=== PATIENT | male | born 1955 | race Caucasian/White ===

== ENCOUNTER 2018-09-11 08:40 | Inpatient (IN) | payer OTHER ==
[~2018-09-11] VITALS: Ht 177.8 cm; Wt 97.1 kg
[~2018-09-11 08:40] MED LIST: ALLOPURINOL 30300 M2 PO; ALLOPURINOL 30300 M3; ARMOUR THYROID60 M1 PO; CIPRO500 MG PO; GEMFIBROZIL 60600 M1 PO; GEMFIBROZIL 60600 MG PO; HYDROCODONE-AP1 EAC6 PO; HYOSCYAMINE0.125 MG PO; LEVOTHYROXINE 0.1 MG PO; MIRALAX17 GM PO; NORVASC 5 MG TAB5 MG PO; PHENAZOPYRIDIN200 M2 PO
[2018-09-11 08:46] VITALS: BP 135/72
[2018-09-11] MEDS ORDERED: COZAAR 25 MG TA25 M1 PO (08:49)
[2018-09-11 09:11] LABS: ABSOLUTE BASOPHILS 0.1 thou/uL (0.0-0.2); ABSOLUTE LYMPHOCYTES 1.6 thou/uL (0.8-5.3); ABSOLUTE MONOCYTES 1.1 thou/uL (0.0-1.2); ABSOLUTE NEUTROPHILS 12.9 thou/uL (1.6-8.1); BASOPHILS 0.5 %; EOSINOPHILS 0.3 %; HEMATOCRIT 41.1 % (42.0-52.0); HEMOGLOBIN 14.5 gm/dL (14.0-18.0); MCH 31.7 pg (26.0-34.0); MCHC 35.2 g/dL (28.0-37.0); MCV 90.2 fL (80.0-100.0); MONOCYTES 6.9 %; MPV 8.4 fl. (7.2-11.1); NUCLEATED RBCS 0 /100WBC; PLATELET COUNT* 207 thou/uL (150-400); POLYS 82.3 %; RBC 4.56 mil/uL (4.50-6.00); WBC 15.7 thou/uL (4.0-11.0)
[2018-09-11 09:23] LABS: ANION GAP 13 mmol/L (7-16); BUN 22 mg/dL (7-18); CALCIUM 9.9 mg/dL (8.5-10.1); CHLORIDE 101 mmol/L (98-107); CO2 25 mmol/L (21-32); CREATININE 1.3 mg/dL (0.6-1.3); GLUCOSE 120 mg/dL (70-99); POTASSIUM 3.5 mmol/L (3.5-5.1); SODIUM 139 mmol/L (136-145)
[2018-09-11 09:37] LABS: INFLUENZA A ANTIGEN None Detected (None Detect); INFLUENZA B ANTIGEN None Detected (None Detect)
[2018-09-11 09:40] LABS: ALKALINE PHOSPHATASE 74 U/L (46-116); LIPASE 64 U/L (73-393); NT-PRO BRAIN NAT PEPTIDE 80 pg/mL (<300); SGOT 21 U/L (15-37); SGPT 30 U/L (30-65); TOTAL BILIRUBIN 1.9 mg/dL (<0.1-1.0); TOTAL PROTEIN 8.1 g/dL (6.4-8.2); TROPONIN-I LEVEL <0.06 ng/mL (<0.06)
[2018-09-11 12:05] VITALS: BP 120/73
--- NOTE | 2018-09-11 14:53 | EKG ---
[place] [address] ELECTROCARDIOGRAM REPORT Name: GIOVANA MCAMHON Room: [address] ADM IN M.R.#: [id number] Admission: 09/11/18 Attend Phys: Dg Rice MD Discharge: Date of : 53 Report #: [id number] THIS REPORT FOR: //name// [facility] ED Test Date: 2018-09-11 Test Time: 09:04:32 Pat Name: GIOVANA MCMAHON Department: Room: [facility] Gender: M Sales Consultant Insurance: : [id number] Requested By: Chi Murcia Order Number: [id number] MD: Evan John Measurements Intervals Qulin Rate: 91 P: 33 IL: 148 QRS: 10 QRSD: 99 T: 15 QT: 365 QTc: 450 Interpretive Statements Sinus rhythm Borderline T wave abnormalities No previous ECG available for comparison Electronically Signed On 09-11-2018 14:53:36 CDT by Evan John [email or web address] <ELECTRONICALLY SIGNED> By: Evan John MD, [facility] 09/11/18 1453 0904 3 Evan John MD, FACC /EPI
[2018-09-11 20:00] VITALS: BP 131/70
[2018-09-12 03:53] LABS: ABSOLUTE LYMPHOCYTES 0.8 thou/uL (0.8-5.3); ABSOLUTE MONOCYTES 0.7 thou/uL (0.0-1.2); ABSOLUTE NEUTROPHILS 12.9 thou/uL (1.6-8.1); BASOPHILS 0.1 %; EOSINOPHILS 0.1 %; HEMATOCRIT 38.5 % (42.0-52.0); LYMPHOCYTES 5.6 %; MCH 30.7 pg (26.0-34.0); MCHC 33.8 g/dL (28.0-37.0); MCV 90.9 fL (80.0-100.0); MONOCYTES 4.9 %; MPV 8.5 fl. (7.2-11.1); NUCLEATED RBCS 0 /100WBC; PLATELET COUNT* 233 thou/uL (150-400); POLYS 89.3 %; RBC 4.23 mil/uL (4.50-6.00); RDW-CV 15.3 % (10.5-14.5); WBC 14.4 thou/uL (4.0-11.0)
[2018-09-12 04:00] VITALS: BP 135/82
[2018-09-12 04:13] LABS: CALCIUM 9.3 mg/dL (8.5-10.1); CREATININE 1.2 mg/dL (0.6-1.3); MAGNESIUM 2.2 mg/dL (1.8-2.4)
[2018-09-12 08:15] VITALS: BP 146/74
[2018-09-12 16:40] VITALS: BP 132/79
[2018-09-12 20:00] VITALS: BP 160/89
[2018-09-13 04:05] LABS: ABSOLUTE EOSINOPHILS 0.1 thou/uL (0.0-0.7); ABSOLUTE LYMPHOCYTES 1.9 thou/uL (0.8-5.3); ABSOLUTE MONOCYTES 0.6 thou/uL (0.0-1.2); ABSOLUTE NEUTROPHILS 9.9 thou/uL (1.6-8.1); BASOPHILS 0.4 %; HEMATOCRIT 38.2 % (42.0-52.0); HEMOGLOBIN 12.9 gm/dL (14.0-18.0); LYMPHOCYTES 14.9 %; MCH 30.5 pg (26.0-34.0); MCHC 33.8 g/dL (28.0-37.0); MCV 90.3 fL (80.0-100.0); MONOCYTES 4.7 %; MPV 8.4 fl. (7.2-11.1); NUCLEATED RBCS 0 /100WBC; PLATELET COUNT* 252 thou/uL (150-400); RBC 4.23 mil/uL (4.50-6.00); RDW-CV 15.3 % (10.5-14.5); WBC 12.5 thou/uL (4.0-11.0)
[2018-09-13 04:15] LABS: CALCIUM 9.4 mg/dL (8.5-10.1); CREATININE 1.1 mg/dL (0.6-1.3); POTASSIUM 3.6 mmol/L (3.5-5.1)
[2018-09-13 11:25] LABS: URINE BILIRUBIN NEGATIVE (Negative); URINE BLOOD TRACE (Negative); URINE CLARITY CLEAR; URINE COLOR YELLOW; URINE GLUCOSE-RANDOM NEGATIVE (Negative); URINE KETONES NEGATIVE (Negative); URINE LEUKOCYTES-REFLEX 1+ (Negative); URINE NITRITE-REFLEX NEGATIVE (Negative); URINE PROTEIN NEGATIVE (Negative); URINE UROBILINOGEN 0.2 E.U./dl (0.2-1.0)
[2018-09-13 11:35] LABS: BACTERIA-REFLEX 1-9 Few /HPF (None Seen); CASTS None Seen /LPF (None Seen); CRYSTALS None Seen /LPF (None Seen); SQUAMOUS 0-3 Few /LPF (0-3); URINE RBC 0-2 Rare /HPF (0-2); URINE WBC-REFLEX 0-5 Rare /HPF (0-5)
[2018-09-13] MEDS ORDERED: AZITHROMYCIN 2250 MG PO (12:45)
[2018-09-13] MEDS ORDERED: CEFDINIR300 MG PO (12:46)
[2018-09-13] MEDS ORDERED: VENTOLIN HFA 1818 GM INH (12:50)
[2018-09-13 13:22] VITALS: BP 150/69
[2018-09-13 14:44] VITALS: BP 150/69
== END 2018-09-13 15:00 | disposition home or self-care (01) | DRG 871 ==
LOC: M.ERS 08:40 → M.ORTHSURG 09:56 → M.TBA-ER 09:56 → M.ORTHSURG 12:12
PROVIDERS: Emergency Medicine; ADMIT Family Medicine
DX: A41.9 Sepsis, unspecified organism (principal); J15.6 Pneumonia due to other Gram-negative bacteria; J96.01 Acute respiratory failure with hypoxia; J44.0 Chronic obstructive pulmonary disease with (acute) lower respiratory infection; N18.3 Chronic kidney disease, stage 3 (moderate); E78.00 Pure hypercholesterolemia, unspecified; E03.9 Hypothyroidism, unspecified; I12.9 Hypertensive chronic kidney disease with stage 1 through stage 4 chronic kidney disease, or unspecified chronic kidney disease; M10.9 Gout, unspecified; Z90.79 Acquired absence of other genital organ(s); Z82.49 Family history of ischemic heart disease and other diseases of the circulatory system; Z83.3 Family history of diabetes mellitus